=== PATIENT | female | born 1965 | race Caucasian/White ===

== ENCOUNTER 2016-09-24 11:03 | Inpatient (IN) | payer BC ==
[2016-09-21 13:54] LABS: BASOPHILS 0.7 %; BASOPHILS ABSOLUTE 0.04 10/3/uL (0.0-0.16); EOSINOPHILS 2.8 %; EOSINOPHILS ABSOLUTE 0.16 10/3/uL (0.0-0.53); HEMATOCRIT 42.8 % (36.0-48.0); HEMOGLOBIN 14.7 g/dL (12.0-16.0); IMMATURE GRANULOCYTES 0.2 %; IMMATURE GRANULOCYTES ABSOLUTE 0.01 10/3/uL (0.0-0.11); LYMPHOCYTES 36.7 %; LYMPHOCYTES ABSOLUTE 2.08 10/3/uL (0.67-4.30); MANUAL DIFF NO %; MEAN CORPUS HGB CONC 34.3 g/dL (32.0-36.0); MEAN CORPUSCULAR HEMOGLOB 29.8 pg (26.0-34.0); MEAN CORPUSCULAR VOLUME 86.6 fL (80-100); MEAN PLATELET VOLUME 10.2 fL (9.2-13.0); MONOCYTES 6.5 %; MONOCYTES ABSOLUTE 0.37 10/3/uL (0.21-1.20); NEUTROPHILS 53.1 %; NEUTROPHILS ABSOLUTE 3.01 10/3/uL (2.02-8.40); PLATELET COUNT 179 10/3/uL (150-400); RBC DISTRIBUTION WIDTH 12.4 % (12.0-16.0); RED CELL COUNT 4.94 10/6/uL (4.0-5.6); WHITE BLOOD CELLS 5.7 10/3/uL (4.5-10.5)
[2016-09-21 14:05] LABS: BUN (BLOOD UREA NITROGEN) 11 MG/DL (6-23); CALCIUM, SERUM 9.6 MG/DL (8.5-10.4); CHLORIDE, SERUM 103 MMOL/L (96-112); CO2 (CARBON DIOXIDE) 32 MMOL/L (24-34); CREATININE 1.31 MG/DL (0.55-1.02); GFR AFRICAN AMERICAN 55 ML/MIN (>=60); GFR NON AFRICAN AMERICAN 47 ML/MIN (>=60); GLUCOSE, SERUM 120 MG/DL (60-99); POTASSIUM, SERUM 3.9 MMOL/L (3.5-5.3); SODIUM, SERUM 138 MMOL/L (135-148)
--- NOTE | ~2016-09-24 | OP ---
Record Of Operation [facility] [address] [place]. [address] NAME: SAUL URIOSTEGUI : 65 STATUS : ADM IN [facility]#: [id number] AGE: 51 ADM/REG DATE : 09/24/16 MR#: [id number] REPORT SERV DATE: 09/26/16 DICTATED BY: VIDA SANCHEZ DATE: 09/25/16 REPORT STATUS : Draft TRANSCRIBED BY: MODL DATE: 09/25/16 DATE OF PROCEDURE: 09/24/2016 PREOPERATIVE DIAGNOSIS: Familial adenomatous polyposis. POSTOPERATIVE DIAGNOSIS: Familial adenomatous polyposis. PROCEDURE PERFORMED: Laparoscopic total abdominal colectomy with ileorectal anastomosis. COMPLICATIONS: None. SURGEON: Delia Sanchez M.D. FELLOW: Donnie Dallas M.D. ANESTHESIA: 1. TAP block. 2. General anesthetic. SPECIMENS: Colon. DRAINS: Bustamante catheter. ESTIMATED BLOOD LOSS: 100 mL. IV FLUIDS: 1400 mL. BLOOD PRODUCTS: None. INDICATIONS FOR PROCEDURE: This is a 51-year-old female, found on endoscopy to have multiple polyps throughout her colon, and was diagnosed with familial adenomatous polyposis. She was offered total abdominal colectomy with ileorectal anastomosis. Risks, benefits, and alternatives were explained to the patient including cancer prevention, need for further surveillance of the remnant colon, bleeding, infection, scarring, injury to surrounding structures, sepsis, risk of future hernias, risk of blood clots, and anesthesia risks were explained to the patient, who understood these and consented to undergo laparoscopic possible open total abdominal colectomy. DESCRIPTION OF PROCEDURE: The patient was brought to the operating room, placed in the supine position where general anesthetic was administered, and she were intubated. She was secured to the bed and moved into the low lithotomy position in [facility]. Preoperative antibiotics were administered. SCDs were placed and turned on, and Bustamante catheter was inserted sterilely. The patient's abdomen was prepped and draped in sterile fashion. Preprocedure time-out was called and agreed upon. Vertical incision was made to the base of the umbilicus and sharp and blunt dissection were used to enter the [place] umbilical defect into the abdomen. A 12 mm camera trocar was inserted and pneumoperitoneum was achieved Record Of Operation [facility] [address] [place]. [address] NAME: SAUL URIOSTEGUI : 65 STATUS : ADM IN PAT#: [id number] AGE: 51 ADM/REG DATE : 09/24/16 MR#: [id number] REPORT SERV DATE: 09/26/16 DICTATED BY: VIDA SANCHEZ DATE: 09/25/16 REPORT STATUS : Draft TRANSCRIBED BY: MODL DATE: 09/25/16 without complication. A camera was inserted and initial survey of the abdomen did not reveal any abnormal growth or bowel injury. Under direct visualization, three 5 mm working trocars were placed, one in the suprapubic area, one in the epigastrium, and one in the left side. A 12 mm right lower quadrant trocar was placed as well. We began the procedure with mobilization of the cecum and ascending colon. The cecum was grasped and retracted medially and cranially and the small bowel mesentery down to its root was mobilized by using electrocautery to take down the perineum. This was done in a caudal to cranial direction until we identified the duodenum which was protected and swept posteriorly. We then carried the mobilization of the right colon mesentery superiorly by taking down the lateral attachments along the white line of Toldt using electrocautery. We then retracted the proximal transverse colon and ascending colon caudally to expose the hepatic flexure. This was taken down using a combination of both electrocautery and LigaSure device. We entered the lesser sac along the gastrocolic ligament by entering the gastrocolic ligament and taking down this attachment to the medial to lateral direction. We were able to mobilize the proximal aspect of the transverse colon using both electrocautery and LigaSure device. Once we had the entire of the ascending and proximal transverse colon, mesentery mobilized, we performed a high ligation of the ileocolic vessel and the majority of the right colon mesentery was taken up to the level of the right branch of the middle colic. We then completed the mobilization of the transverse colon and its mesentery by completing the takedown of the gastrocolic ligament to the splenic flexure. We were able to visualize the lesser sac in the posterior wall of the stomach. The mesentery including the middle colic vessels were then taken as well using a LigaSure device. It should be noted that the ileocolic vessel on initial division of the mesentery in the right lower quadrant was taken using two hemoclips on the stay side of the vessel. The transverse colon and its mesentery was continued all the way to the level of the splenic flexure at this point, and elected to mobilize the descending colon. The descending colon was retracted medially at the level of the pelvic brim, and the lateral attachments were taken down along the white line of Toldt. We were able to identify the ureter at this point and protect it during the dissection. The entirety of the sigmoid colon mesentery was mobilized medially and the white line of Toldt and the attachments of the descending colon were taken using electrocautery up to including the splenic flexure. There were some modest adhesions to the splenic flexure requiring some meticulous dissection. We were ultimately able to free up from the spleen without any major bleeding. We then continued the division of the mesentery using the LigaSure device around the splenic flexure and down to the descending colon. Again, the ureter was identified prior to division of the sigmoid colon mesentery. This was taken all the way down to the level of the rectosigmoid junction at which point, we elected to make our distal transection. The mesentery was divided up to the posterior aspect of the colon wall using the LigaSure device in order to create a clean base for the stapler. We then fired a 75 mm blue load across the colon at the rectosigmoid junction. We examined the abdomen thoroughly for hemostasis and it was felt to be adequate. We then terminated the laparoscopic portion of our procedure. The patient did have a prior Pfannenstiel incision. This was reopened along the transverse direction of roughly 4 cm. The anterior rectus sheath was divided at this level and elevated using Traci clamps. Rectus muscles below were using electrocautery, both above and below the division of the fascia. We bluntly the rectus muscles and grasped. Below this was opened bluntly without any injury to the bowel. We were able to pass an Tee wound retractor and the distal end of the colon as the transection point was delivered through this defect. We were able to remove the entirety of Record Of Operation [facility] [address] [facility] [address] [place]. [address] NAME: SAUL URIOSTEGUI : 65 STATUS : ADM IN [facility]#: [id number] AGE: 51 ADM/REG DATE : 09/24/16 MR#: [id number] REPORT SERV DATE: 09/26/16 DICTATED BY: VIDA SANCHEZ DATE: 09/25/16 REPORT STATUS : Draft TRANSCRIBED BY: DENEEN DATE: 09/25/16 the colon, the omentum through this defect. We identified a spot of the distal terminal ilium roughly 5 cm from the ileocecal valve as the transection point. Towels were used to cover all incisions and this transection point was grasped with a Traci clamp. The intervening mesentery between the proximal colon mesentery, which had already been and then transection point of the terminal ilium was divided using LigaSure device. We then used a scalpel to cut the terminal ilium and ultimately freeing the entirety of the colon specimen. This was sent to surgical pathology and opened to confirm no suspicious masses. The distal small bowel was then grasped between three Allis clamps and an EEA dilator was passed. We were only able to pass a 25 mm EEA dilator so, we elected to use a 25 mm EEA stapler. The anvil to the stapler was placed within the lumen of the bowel and the spike deployed roughly 4 cm from the open enterotomy. The post was advanced through the bowel wall and a 2-0 Prolene pursestring was placed at its base to secure the post to the antimesenteric border of the small bowel. The enterotomy of the small bowel was then grasped with Allis clamps and a 75 mm blue load stapler was fired across to close the defect. We then returned the anvil after removing the spike into the abdomen and removed all dirty instruments from the field. The Tee wound retractor was occluded and pneumoperitoneum was again achieved without complication. At this point, the fellow performed the transanal portion of the procedure. Serial digital dilation was adequate for 25 mm EEA stapler. The stapler was then passed transanally and spike deployed just posterior to the staple line at the rectosigmoid junction. This was without difficulty. We then ensured the proper orientation of the remaining small bowel and its mesentery to ensure no twisting or occlusion of the vessels. We then mated the male and female ends of the EEA stapler in standard fashion. The stapler was then closed and after appropriate wait times, fired without complication. The stapler was removed for instructions. Leak test was performed and was negative. We again examined the abdomen for hemostasis and was felt to be adequate. The Tee wound retractor was then removed and the peritoneum posterior to the muscles was then closed using a 2-0 Vicryl suture. Anterior rectus muscle was closed using a single 0 PDS suture. All skin defects were closed using 3-0 Vicryl deep dermal sutures, and the extraction site was packed with sterile gauze after reapproximating its center with a 3-0 Vicryl deep dermal suture. The patient tolerated the procedure well and was transferred to the PACU for routine postprocedure care. STAFF PHYSICIAN REVIEW: Dr. Sanchez was present for the duration of the procedure. All needle, lap, and instrument counts were correct. DICTATED BY: MD JESSICA Bernstein/DENEEN Delia Sanchez M.D. / [id number] CC: Delia Sanchez M.D. Record Of Operation [address] [address] NAME: SAUL URIOSTEGUI : 65 STATUS : ADM IN [facility]#: [id number] AGE: 51 ADM/REG DATE : 09/24/16 MR#: [id number] REPORT SERV DATE: 09/26/16 DICTATED BY: VIDA SANCHEZ DATE: 09/25/16 REPORT STATUS : Draft TRANSCRIBED BY: MODL DATE: 09/25/16 Yasir Sanchez M.D.
[~2016-09-24 11:03] MED LIST: CYMBALTA; CYMBALTA60 PO; ELMIRON; ELMIRON 100 MG100 MG OR; HORMONE PELLETS SQ; LORT7 PO; PRILOSEC40 MG PO; PROTONIX; PROTONIX PO; RANITIDINE300 MG PO
[2016-09-25 06:17] LABS: BUN (BLOOD UREA NITROGEN) 13 MG/DL (6-23); CALCIUM, SERUM 9.6 MG/DL (8.5-10.4); CHLORIDE, SERUM 103 MMOL/L (96-112); CO2 (CARBON DIOXIDE) 24 MMOL/L (24-34); CREATININE 1.31 MG/DL (0.55-1.02); GFR AFRICAN AMERICAN 55 ML/MIN (>=60); GFR NON AFRICAN AMERICAN 47 ML/MIN (>=60); GLUCOSE, SERUM 198 MG/DL (60-99); POTASSIUM, SERUM 4.5 MMOL/L (3.5-5.3); SODIUM, SERUM 137 MMOL/L (135-148)
[2016-09-25 06:38] LABS: BASOPHILS 0 %; EOSINOPHILS 0 %; HEMOGLOBIN 14.5 g/dL (12.0-16.0); LYMPHOCYTES 4.7 %; LYMPHOCYTES ABSOLUTE 0.6 10/3/uL (0.7-4.3); MEAN CORPUS HGB CONC 33.7 g/dL (32.0-36.0); MEAN CORPUSCULAR HEMOGLOB 29.5 pg (26.0-34.0); MEAN CORPUSCULAR VOLUME 87.7 fL (80-100); MEAN PLATELET VOLUME 8.8 fL (6.8-10.8); MONOCYTES 5.3 %; MONOCYTES ABSOLUTE 0.6 10/3/uL (0.2-1.2); NEUTROPHILS ABSOLUTE 10.6 10/3/uL (2.0-8.4); PLATELET COUNT 193 10/3/uL (150-400); RBC DISTRIBUTION WIDTH 12.4 % (12.0-16.0)
[2016-09-25 06:39] LABS: MANUAL DIFF NO %; WHITE BLOOD CELLS 11.7 10/3/uL (4.5-10.5)
[2016-09-26 04:54] LABS: BASOPHILS 0.1 %; BASOPHILS ABSOLUTE 0.01 10/3/uL (0.0-0.16); EOSINOPHILS 0.1 %; EOSINOPHILS ABSOLUTE 0.01 10/3/uL (0.0-0.53); HEMATOCRIT 34.5 % (36.0-48.0); HEMOGLOBIN 11.7 g/dL (12.0-16.0); IMMATURE GRANULOCYTES 0.2 %; IMMATURE GRANULOCYTES ABSOLUTE 0.02 10/3/uL (0.0-0.11); LYMPHOCYTES 9.1 %; LYMPHOCYTES ABSOLUTE 0.86 10/3/uL (0.67-4.30); MANUAL DIFF NO %; MEAN CORPUS HGB CONC 33.9 g/dL (32.0-36.0); MEAN CORPUSCULAR HEMOGLOB 30.6 pg (26.0-34.0); MEAN CORPUSCULAR VOLUME 90.3 fL (80-100); MEAN PLATELET VOLUME 10.1 fL (9.2-13.0); MONOCYTES 7.7 %; MONOCYTES ABSOLUTE 0.72 10/3/uL (0.21-1.20); NEUTROPHILS 82.8 %; NEUTROPHILS ABSOLUTE 7.79 10/3/uL (2.02-8.40); PLATELET COUNT 155 10/3/uL (150-400); RBC DISTRIBUTION WIDTH 12.9 % (12.0-16.0); RED CELL COUNT 3.82 10/6/uL (4.0-5.6); WHITE BLOOD CELLS 9.4 10/3/uL (4.5-10.5)
[2016-09-26 05:08] LABS: BUN (BLOOD UREA NITROGEN) 15 MG/DL (6-23); CALCIUM, SERUM 9.4 MG/DL (8.5-10.4); CHLORIDE, SERUM 106 MMOL/L (96-112); CO2 (CARBON DIOXIDE) 27 MMOL/L (24-34); GFR AFRICAN AMERICAN 67 ML/MIN (>=60); GFR NON AFRICAN AMERICAN 58 ML/MIN (>=60); POTASSIUM, SERUM 4.2 MMOL/L (3.5-5.3); SODIUM, SERUM 138 MMOL/L (135-148)
[2016-09-26 05:10] LABS: GLUCOSE, SERUM 144 MG/DL (60-99)
[2016-09-27] MEDS ORDERED: ZOFRAN8 PO (11:46)
[2016-09-27] MEDS ORDERED: PCET PO (11:47)
[2016-09-27 15:00] LABS: HEMATOCRIT 36.2 % (36.0-48.0)
== END 2016-09-27 16:48 | disposition home or self-care (01) | DRG 331 ==
LOC: SDC/OF 11:03 → PACU 17:16 → 5SO 19:14
PROVIDERS: Colon & Rectal Surgery
PROC: 0DTE4ZZ Resection of Large Intestine, Percutaneous Endoscopic Approach (ICD-10-PCS; principal; 2016-09-24 12:45)
DX: D12.0 Benign neoplasm of cecum (principal); F32.9 Major depressive disorder, single episode, unspecified; D13.39 Benign neoplasm of other parts of small intestine; D12.2 Benign neoplasm of ascending colon; D12.4 Benign neoplasm of descending colon; D12.5 Benign neoplasm of sigmoid colon; K21.9 Gastro-esophageal reflux disease without esophagitis; Z90.49 Acquired absence of other specified parts of digestive tract; Z98.890 Other specified postprocedural states; Z80.3 Family history of malignant neoplasm of breast; Z80.0 Family history of malignant neoplasm of digestive organs
CPT/HCPCS: 80048; 85014; 85018; 85025; 88305; 88309; 93005; A9270-GY; J0690; J1170; J2250; J2405; J2550; J2710; J2795; J3010